=== PATIENT | female | born 2005 | race Two or more races ===

== ENCOUNTER 2024-03-18 10:03 | Emergency (ER) | payer SELFPAY ==
[~2024-03-18] VITALS: Ht 180.3 cm; Wt 75.0 kg
[2024-03-18 10:13] VITALS: O2SAT 99
[2024-03-18 11:09] VITALS: TEMP 98
[2024-03-18 11:16] VITALS: BP 139/121; PULSE 78; RESP 16
[2024-03-18] MEDS: KETOROLAC 30MG/ML VIAL IM ONE (11:16)
[2024-03-18] MEDS ORDERED: DOXY100T2 MT (12:58)
[2024-03-18] MEDS: LIDOCAINE HCL/PF 1% 10 MG/ML 5ML VIAL INFIL ONE (13:22)
[2024-03-18] MEDS: CEFTRIAXONE SODIUM 500MG VIAL IM ONE (13:22)
== END 2024-03-18 19:54 | disposition home or self-care (01) ==
LOC: ER 10:03
DX: S09.90XA Unspecified injury of head, initial encounter (principal); R68.84 Jaw pain; Y08.89XA Assault by other specified means, initial encounter; Y93.89 Activity, other specified; Y92.89 Other specified places as the place of occurrence of the external cause; Y99.8 Other external cause status
CPT/HCPCS: 99285; 70450; 81025; 70150; 96372; J0696; J1885; J3490